=== PATIENT | male | born 1945 | race Caucasian/White ===

== ENCOUNTER 2017-07-16 10:21 | Observation (INO) | payer MEDICARE, OTHER ==
[~2017-07-16] VITALS: Ht 170.2 cm; Wt 81.6 kg
[~2017-07-16 10:21] MED LIST: ASPIRIN EC81 MG PO; CELEBREX200 MG PO; COENZYME Q10100 M1 PO; JANUVIA50 MG PO; LORTAB 7.5-5001 EACH PO; LYRICA50 MG PO; METFORMIN HCL1000 MG PO; MILK OF MAGNESIA; MIRALAX17 GM PO; MORPHINE SULFAT15 M1 PO; NEXIUM40 MG PO; PROTANDIM; REGLAN5 MG PO; VICTOZA 3-0.6 MG/0.1 SC; VOLTAREN100 GM TOP; XARELTO10 MG PO; ZETIA10 MG PO
[2017-07-16 10:55] LABS: BASOPHILS # (AUTO) 0.1 (0.0-0.1); BASOPHILS % 0.9 % (0.0-1.0); EOSINOPHILS # (AUTO) 0.3 (0.0-0.4); EOSINOPHILS % 3.8 % (0.0-6.0); HEMATOCRIT 40.1 % (38.2-49.6); HEMOGLOBIN 13.1 g/dL (14.0-18.0); LYMPHOCYTES # (AUTO) 1.4 (1.0-3.2); LYMPHOCYTES % 17.8 % (18.0-39.1); MEAN CORPUSCULAR HEMOGLOBIN 28.1 pg (28-32); MEAN CORPUSCULAR HGB CONC 32.7 g/dL (31-35); MEAN CORPUSCULAR VOLUME 86.1 fL (81-99); MONOCYTES # (AUTO) 0.5 (0.2-0.8); MONOCYTES % 5.9 % (4.4-11.3); NEUTROPHILS # (AUTO) 5.8 (2.1-6.9); NEUTROPHILS % 71.2 % (38.7-80.0); PLATELET COUNT 367 x10e3/uL (140-360); RED BLOOD COUNT 4.66 x10e6/uL (4.3-5.7); RED CELL DISTRIBUTION WIDTH 13.8 % (11.7-14.4)
[2017-07-16] MEDS ORDERED: CHROMIUM PICO200 MCG PO (11:02)
[2017-07-16] MEDS ORDERED: PLAVIX75 MG PO (11:02)
[2017-07-16] MEDS ORDERED: ZETIA10 MG PO (11:02)
[2017-07-16 11:07] LABS: INR 0.81; PROTHROMBIN TIME 11.6 seconds (11.9-14.5)
[2017-07-16 11:08] LABS: PARTIAL THROMBOPLASTIN TIME 26.2 seconds (23.8-35.5)
--- NOTE | 2017-07-16 11:10 | Diagnostic Imaging Report ---
PROCEDURE: CHEST SINGLE (PORTABLE) COMPARISON: 03/01/2017. INDICATIONS: CHEST PAIN FINDINGS: Lung volumes are low. No focal airspace consolidation, pleural effusion, or pneumothorax. Cardiomediastinal contour and pulmonary vasculature are within normal limits for portable, AP technique and degree of inspiratory effort. No acute osseous abnormality. Thoracolumbar spinal fusion hardware is partially visualized. CONCLUSION: Low lung volumes without acute cardiopulmonary abnormality. Dictated by: Lucio Prince M.D. on 07/16/2017 at 11:18 Electronically approved by: Lucio Prince M.D. on 07/16/2017 at 11:18
[2017-07-16 11:14] LABS: ALANINE AMINOTRANSFERASE 19 IU/L (0-55); ALBUMIN 3.7 g/dL (3.5-5.0); ALBUMIN/GLOBULIN RATIO 1.2 (0.8-2.0); ALKALINE PHOSPHATASE 63 IU/L (40-150); BLOOD UREA NITROGEN 24 mg/dL (7-26); BUN/CREATININE RATIO 22 (6-25); CALCIUM 9.1 mg/dL (8.4-10.2); CARBON DIOXIDE 27 mmol/L (22-29); CHLORIDE 105 mmol/L (98-107); CREATINE KINASE 39 IU/L (30-200); EST GLOMERULAR FILTRATION RATE > 60 ML/MIN (60-); GLUCOSE 221 mg/dL (74-118); SODIUM 139 mmol/L (136-145)
[2017-07-16 11:20] LABS: TROPONIN I 0.008 ng/mL (0-0.300)
[2017-07-16] MEDS ORDERED: DEXTROSE 50% SYRINGE 50 ML IV PRN (11:45)
[2017-07-16] MEDS ORDERED: NITROGLYCERIN 0.4 MG SUBL SL PRN (11:45)
[2017-07-16] MEDS ORDERED: ONDANSETRON HCL INJ 2 MG/ML VIAL IV PRN ×2 (11:45→16:00)
[2017-07-16] MEDS ORDERED: MORPHINE SULFATE 2 MG/ML SYR IV PRN (11:45)
[2017-07-16 12:22] LABS: BILIRUBIN,URINE NEGATIVE (NEGATIVE); KETONES,URINE NEGATIVE (NEGATIVE); LEUKOCYTE ESTERASE ,URINE NEGATIVE (NEGATIVE); NITRITE,URINE NEGATIVE (NEGATIVE); PROTEIN,URINE DIPSTICK NEGATIVE (NEGATIVE); URINE UROBILINOGEN 0.2 mg/dL (0.2 - 1)
[2017-07-16 12:30] LABS: COLOR,URINE YELLOW (YELLOW)
[2017-07-16] MEDS: FAMOTIDINE 20 MG TAB PO SCH ×2 (12:48→23:45)
[2017-07-16 12:55] LABS: CLARITY,URINE SL CLOUDY (CLEAR)
--- NOTE | 2017-07-16 12:57 | History and Physical ---
CHIEF COMPLAINT: Chest pain. Mr. Owusu is a 71-year-old gentleman with a history of recent stroke and vascular disease who had a room attendant placed which showed very brief atrial fibrillation, multiple PVCs. He has been having increasing shortness of breath and chest pain on minimal exertion. His pain is relieved with rest. He was started on clopidogrel, which has helped his exertional symptoms. PAST MEDICAL HISTORY: As listed above. SOCIAL HISTORY: Patient does not smoke or drink. MEDICATIONS: Reviewed. ALLERGIES: NO KNOWN DRUG ALLERGIES. REVIEW OF SYSTEMS: Negative except as dictated in the history of present illness. PHYSICAL EXAMINATION VITAL SIGNS: Afebrile, heart rate 98, blood pressure 149/68, O2 sat 98%. CARDIOVASCULAR: Regular rhythm. S4 gallop. No murmurs. RESPIRATORY: Clear to auscultation bilaterally. ABDOMEN: Soft. Bowel sounds adequate. EXTREMITIES: Pedal pulses are 2+. NEUROLOGIC: Exam is nonfocal. LABS: Reviewed. Renal function is normal. Hemoglobin is 13.1. Cardiac troponin is negative, blood sugars to 21. Chest x-ray was performed which shows low lung volumes without any acute cardiopulmonary abnormality. ASSESSMENT ASSESSMENT: Acute unstable angina. RECOMMENDATIONS: Mr. Owusu has multiple risk factors, including recent stroke, for coronary artery disease. He is having progressive typical exertional symptoms of angina. This warrants coronary angiography. Recent echocardiogram was performed in the office and was within normal limits. The risks, benefits and alternatives to this procedure were discussed with the patient. He is agreeable for the same. Job#: [id number] ALLISON
[2017-07-16] MEDS ORDERED: HEPARIN SOD (PORCINE) 1000 UNIT/ML 30ML ONE (13:19)
[2017-07-16] MEDS ORDERED: MIDAZOLAM HCL 2 MG/2 ML VIAL ONE ×2 (13:20→14:48)
[2017-07-16] MEDS ORDERED: FENTANYL CITRATE/PF 100MCG/2 ML INJ ONE (13:20)
[2017-07-16] MEDS ORDERED: VERAPAMIL HCL 2.5 MG/ML 2 ML VIAL ONE (13:20)
[2017-07-16] MEDS ORDERED: LIDOCAINE HCL 2% LOCAL 20 ML VIAL ONE (13:21)
[2017-07-16] MEDS ORDERED: IOPAMIDOL 370 MG/ML 200 ML INFUS..BTL INJ ONE ×3 (13:21→15:09)
[2017-07-16] MEDS ORDERED: HEPARIN SOD/SOD CHLORIDE 2,000 ML ONE (13:30)
[2017-07-16] MEDS ORDERED: SODIUM CHLORIDE 0.9% 1000ML 1,000 ML ONE (14:08)
[2017-07-16] MEDS ORDERED: BIVALIRUDIN 250 MG/VIAL IV ONE (14:29)
[2017-07-16] MEDS ORDERED: SODIUM CHLORIDE 0.9% 50ML 50 ML ONE (14:30)
[2017-07-16] MEDS ORDERED: PRASUGREL 10 MG TAB ONE (14:41)
[2017-07-16] MEDS ORDERED: ASPIRIN 81 MG CHEW TAB ONE (15:01)
--- NOTE | 2017-07-16 15:43 | Consultation ---
DATE OF CONSULTATION: July 16, 2017 INTERNAL MEDICINE CONSULTATION REASON FOR CONSULTATION: Medical management. HISTORY OF PRESENT ILLNESS: This is a 71-year-old white man who presents to [facility] emergency room with 1-week history of intermittent chest tightness that usually occurs with exertion. The patient denies any associated shortness of breath but does complain of fatigue with the chest pain. 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 Patient is on clopidogrel. A 12-lead EKG done in the emergency room did not reveal any acute ischemic changes. Patient is currently [id number]. The patient's initial cardiac enzymes are normal. The patient's BUN and creatinine on this admission are 24 and 1.1 respectively. Patient's fasting serum glucose is elevated at 221. Of note, urinalysis did reveal slightly cloudy urine with 3+ glucose, otherwise unremarkable. A chest x-ray was also unremarkable. Patient will be admitted for cardiac evaluation. REVIEW OF SYSTEMS GENERAL: Patient has lost approximately 40 pounds over the last 6 months, but he is on GLP1 agonist therapy, namely liraglutide. No fever or chills. HEENT: No headaches. No visual changes. CARDIOVASCULAR/RESPIRATORY: Chest pain as per HPI. He has had some episodes of palpitations, too, in the last couple of weeks. Denies any shortness of breath. Does complain of fatigue, though. GI: No nausea, vomiting, diarrhea or constipation, but he does have some GERD. : No UTI or BPH symptoms. NEUROMUSCULAR: He does complain of chronic lower back pain. PAST MEDICAL HISTORY 1. Post lumbar laminectomy syndrome. 2. 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 3. Dyslipidemia. 4. Severe statin intolerance. 5. Type 2 diabetes mellitus. 6. GERD. ALLERGIES: NO KNOWN DRUG ALLERGIES. MEDICATIONS 1. Victoza 0.6 mg subcutaneous daily. 2. Clopidogrel 75 mg daily. 3. Zetia 10 mg daily. 4. Metformin 850 mg t.i.d. 5. Nexium 40 mg daily. 6. Morphine sulfate extended release 15 mg b.i.d. FAMILY HISTORY: Mother of lymphoma. Patient has no family history of coronary artery disease, though. SURGICAL HISTORY 1. Lumbar laminectomy and fusion in 1999. 2. Laparoscopic cholecystectomy in 1991. 3. Right total knee replacement in 2012. 4. Appendectomy at age 22. SOCIAL HISTORY: This man is retired. He is , lives with his . No history of tobacco or alcohol use. 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 PHYSICAL EXAMINATION GENERAL: He is awake, alert, fully oriented, in no respiratory distress, very pleasant and cooperative with exam. VITAL SIGNS: Height is 5 feet 7 inches. Weight is 180 pounds. Calculated body mass index is 28. Blood pressure is 149/68, pulse is 98, respiratory rate is 18, oxygen saturation is 98% on room air, and temperature is 99.2. INTEGUMENT: Skin is warm and dry. No pallor, jaundice, diaphoresis. HEENT: Anicteric sclerae with moist mucous membranes. NECK: Supple. CARDIOVASCULAR: Tachycardic rate with regular rhythm. LUNGS: No rales, no rhonchi, no wheezes. ABDOMEN: Soft. Normal bowel sounds. Nontender. EXTREMITIES: No edema or deformity. NEUROLOGICALLY: Intact. DIAGNOSES 1. Unstable angina. 2. Type 2 diabetes mellitus. 3. Hyperlipidemia. 4. Severe statin intolerance. 5. 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 PLAN 1. Will hold today's clopidogrel dose. 2. Consult Cardiology. 3. Rule out myocardial infarction. 4. Patient may benefit from a left heart catheterization. 5. Will continue Zetia 10 mg daily for patient's hyperlipidemia. 6. Will continue Victoza 0.6 mg subcutaneous daily for glucose control. 7. Will hold metformin since the patient likely will undergo a left heart catheterization. 8. Blood pressure monitoring and control. I spent 45 minutes in the care of the patient. Job#: [id number] EV
[2017-07-16] MEDS: SODIUM CHLORIDE 0.9% 1000ML 1,000 ML IV SCH (15:47)
[2017-07-16] MEDS ORDERED: MORPHINE SULFATE 15MG TAB CR PO PRN (16:00)
[2017-07-16] MEDS ORDERED: ACETAMINOPHEN 325 MG TAB PO PRN (16:00)
[2017-07-16] MEDS ORDERED: HYDROCODONE/APAP 5MG-325MG TAB PO PRN (16:00)
[2017-07-16] MEDS ORDERED: MORPHINE SULFATE 4 MG/ML SYR IV PRN (16:00)
[2017-07-16] MEDS ORDERED: MORPHINE SULFATE ORAL SOLN 10 MG/5 ML UDC PO PRN (16:15)
[2017-07-16] MEDS: INSULIN REGULAR, HUMAN 100 UNIT/1 ML 3ML VIAL SQ SCH ×2 (16:30→20:11)
[2017-07-16 16:56] LABS: BASOPHILS # (AUTO) 0.1 (0.0-0.1); BASOPHILS % 0.8 % (0.0-1.0); EOSINOPHILS # (AUTO) 0.3 (0.0-0.4); EOSINOPHILS % 2.9 % (0.0-6.0); HEMATOCRIT 34.7 % (38.2-49.6); HEMOGLOBIN 11.4 g/dL (14.0-18.0); LYMPHOCYTES # (AUTO) 1.9 (1.0-3.2); LYMPHOCYTES % 21.5 % (18.0-39.1); MEAN CORPUSCULAR HEMOGLOBIN 28.4 pg (28-32); MEAN CORPUSCULAR HGB CONC 32.9 g/dL (31-35); MEAN CORPUSCULAR VOLUME 86.3 fL (81-99); MONOCYTES # (AUTO) 0.9 (0.2-0.8); MONOCYTES % 9.8 % (4.4-11.3); NEUTROPHILS # (AUTO) 5.7 (2.1-6.9); NEUTROPHILS % 64.8 % (38.7-80.0); PLATELET COUNT 302 x10e3/uL (140-360); RED BLOOD COUNT 4.02 x10e6/uL (4.3-5.7); RED CELL DISTRIBUTION WIDTH 13.8 % (11.7-14.4)
[2017-07-16] MEDS ORDERED: NON-FORMULARY MEDICATION (Metformin Hcl 1,000 MG) PO SCH (17:00)
[2017-07-16] MEDS ORDERED: NON-FORMULARY MEDICATION (Metoclopramide Hcl (Reglan) 5 MG) PO SCH (17:00)
[2017-07-16 17:20] LABS: CREATINE KINASE MB 0.8 ng/mL (0.00-5.00); TROPONIN I 0.063 ng/mL (0-0.300)
[2017-07-16 20:16] VITALS: BP 175/89
[2017-07-16] MEDS ORDERED: ZOLPIDEM TARTRATE 5 MG TAB PO PRN (21:00)
[2017-07-17] MEDS: SODIUM CHLORIDE 0.9% 1000ML 1,000 ML IV SCH (00:03)
[2017-07-17 01:53] LABS: CREATINE KINASE MB 7.5 ng/mL (0.00-5.00)
[2017-07-17 01:58] LABS: TROPONIN I 1.717 ng/mL (0-0.300)
[2017-07-17 05:23] VITALS: BP 105/59
[2017-07-17 06:26] VITALS: BP 105/59
[2017-07-17 06:48] LABS: BASOPHILS # (AUTO) 0.1 (0.0-0.1); BASOPHILS % 0.8 % (0.0-1.0); EOSINOPHILS # (AUTO) 0.4 (0.0-0.4); EOSINOPHILS % 4.9 % (0.0-6.0); HEMATOCRIT 36.3 % (38.2-49.6); HEMOGLOBIN 11.9 g/dL (14.0-18.0); LYMPHOCYTES # (AUTO) 1.5 (1.0-3.2); LYMPHOCYTES % 16.2 % (18.0-39.1); MEAN CORPUSCULAR HEMOGLOBIN 28.3 pg (28-32); MEAN CORPUSCULAR HGB CONC 32.8 g/dL (31-35); MEAN CORPUSCULAR VOLUME 86.2 fL (81-99); MONOCYTES # (AUTO) 0.7 (0.2-0.8); MONOCYTES % 8.1 % (4.4-11.3); NEUTROPHILS # (AUTO) 6.3 (2.1-6.9); NEUTROPHILS % 69.6 % (38.7-80.0); PLATELET COUNT 307 x10e3/uL (140-360); RED BLOOD COUNT 4.21 x10e6/uL (4.3-5.7); RED CELL DISTRIBUTION WIDTH 13.8 % (11.7-14.4)
[2017-07-17 07:00] VITALS: BP 119/55
[2017-07-17 07:06] LABS: ALANINE AMINOTRANSFERASE 32 IU/L (0-55); ALBUMIN 3.2 g/dL (3.5-5.0); ALBUMIN/GLOBULIN RATIO 1.1 (0.8-2.0); ALKALINE PHOSPHATASE 64 IU/L (40-150); ANION GAP 10.1 mmol/L (8-16); BLOOD UREA NITROGEN 18 mg/dL (7-26); BUN/CREATININE RATIO 19 (6-25); CALCIUM 8.6 mg/dL (8.4-10.2); CARBON DIOXIDE 26 mmol/L (22-29); CHLORIDE 107 mmol/L (98-107); CHOL/HDL RATIO 5.9 (3.9-4.7); CHOLESTEROL 195 MD/DL (0-199); CREATININE, SERUM 0.97 mg/dL (0.72-1.25); EST GLOMERULAR FILTRATION RATE > 60 ML/MIN (60-); GLUCOSE 133 mg/dL (74-118); HDL CHOLESTEROL 33 MG/DL (40-60); LDL CHOLESTEROL 135 MG/DL (60-130); POTASSIUM 4.1 mmol/L (3.5-5.1); SODIUM 139 mmol/L (136-145); TRIGLYCERIDES 133 MG/DL (0-149)
[2017-07-17 07:18] LABS: TROPONIN I 1.916 ng/mL (0-0.300)
[2017-07-17] MEDS: INSULIN REGULAR, HUMAN 100 UNIT/1 ML 3ML VIAL SQ SCH (07:30)
[2017-07-17] MEDS ORDERED: BYSTOLIC10 MG PO (08:22)
[2017-07-17] MEDS ORDERED: COZAAR25 MG PO (08:22)
[2017-07-17] MEDS ORDERED: ASPIRIN EC81 MG PO (08:22)
[2017-07-17] MEDS ORDERED: LOSARTAN POTASSIUM 25 MG TAB PO SCH (09:00)
[2017-07-17] MEDS ORDERED: NEBIVOLOL 10 MG TAB PO SCH (09:00)
[2017-07-17] MEDS ORDERED: EZETIMIBE 10 MG TAB PO SCH (09:00)
[2017-07-17] MEDS ORDERED: ASPIRIN 81 MG ENTERIC COATED PO SCH (09:00)
[2017-07-17] MEDS ORDERED: PANTOPRAZOLE SOD 40 MG TABEC PO SCH (09:00)
[2017-07-17] MEDS ORDERED: CLOPIDOGREL BISULFATE 75 MG TAB PO SCH ×2 (09:00)
[2017-07-17] MEDS ORDERED: LIRAGLUTIDE 1.2 MG SC SCH (09:00)
[2017-07-17] MEDS ORDERED: FAMOTIDINE 20 MG TAB PO SCH (09:00)
--- NOTE | 2017-07-17 09:02 | Discharge Summary ---
ADMISSION DIAGNOSIS: Unstable angina. DISCHARGE DIAGNOSES 1. Tfl-UA-mkyfqml elevation myocardial infarction. COMORBID CONDITIONS: 1. Recent cerebrovascular accident. 2. Dyslipidemia. 3. Diabetes mellitus, type 2. 4. Gastroesophageal reflux disease. PROCEDURE: Cardiac catheterization with percutaneous coronary intervention of the left anterior descending and right coronary artery. HISTORY OF PRESENT ILLNESS: This is a 71-year-old man who presented with 1 week of progressive unstable angina. He was taken to the cardiac catheterization lab, which revealed sequential 90% LAD stenosis, as well as 90% RCA stenosis for which he underwent PCI of the proximal and mid-LAD, as well as RCA. He tolerated the procedure well, and was monitored in the hospital overnight without complications. He was counseled on the importance of dual antiplatelet therapy, and started on beta blockade and ARB. He is statin intolerant, and thus is not discharged on statin therapy. We will attempt to arrange Repatha for the patient as an outpatient for his dyslipidemia given his new diagnosis of coronary artery disease. PHYSICAL EXAMINATION VITALS: Temperature 97.8 degrees, pulse 73, respiratory rate 20, blood pressure 119/55, and oxygen saturation 100% on room air. GENERAL: A well-developed, well-nourished man in no acute distress. LUNGS: Clear to auscultation bilaterally. No wheezes or crackles. CARDIOVASCULAR: Normal rate and regular rhythm. No murmur. Normal S1 and S2. ABDOMEN: Soft and nontender. EXTREMITIES: No edema. Right wrist with dressing intact. MEDICATIONS: Please see medication reconciliation. CORI LUNDBERG MD Job#: [id number] RI JOE
[2017-07-17] MEDS ORDERED: MORPHINE SULFAT30 M2 PO (09:33)
[2017-07-17] MEDS ORDERED: REGLAN10 MG PO (09:33)
--- NOTE | 2017-09-11 17:13 | Operative Report ---
DATE OF PROCEDURE: July 16, 2017 INDICATIONS: Coronary artery disease. Unstable angina. PROCEDURES PERFORMED: 1. Left heart catheterization, selective coronary angiography. 2. Percutaneous transluminal coronary angioplasty and drug-eluting stent placement to the mid and proximal left anterior descending artery. 3. Percutaneous transluminal coronary angioplasty and drug-eluting stent placement to the mid right coronary artery. 4. Deployment of right wrist transradial band. COMPLICATIONS: None. RECOMMENDATIONS: Dual antiplatelet therapy for life. Access was obtained in the right radial artery using ultrasound guidance. A 5-Maltese sheath was placed. Diagnostic coronary angiogram revealed patent left main, left anterior descending artery proximal 90% and mid 90%, circumflex mild disease, right coronary artery mid 90% and distal 50%. Right posterior lateral and posterior descending arteries had 50% ostial stenosis. LV ejection fraction 65%. LV end-diastolic pressure of 14. No gradient across the aortic valve on pullback. A decision was made to intervene on the left anterior and right coronary arteries. The patient received intravenous Angiomax and oral Effient for anticoagulation. The left main was cannulated using an XB guide. A short wire was advanced across the lesion. Two stents 2.5 x 20 and 3.0 x 20 were deployed in the mid and proximal left anterior descending arteries respectively, postdilated with a 3.5 mm balloon at 18 atmospheres. The guide was exchanged to a JR4 guide. A short wire was advanced across the right coronary artery, and a 2.5 x 12 mm [employer] Synergy stent was deployed in the right coronary artery with excellent end result, less than 10% residual stenosis in all vessels. PALOMO-3 flow. No complications. A right wrist TR band applied. Patient discharged home after overnight observation. Job#: [id number] EV
== END 2017-07-17 10:16 | disposition home or self-care (01) ==
LOC: ER 10:24 → ERHOLD 11:48 → IMCU 13:43
PROVIDERS: ADMIT Internal Medicine Interventional Cardiology; ATTEND Internal Medicine Interventional Cardiology
DX: I21.4 Non-ST elevation (NSTEMI) myocardial infarction (principal); I25.110 Atherosclerotic heart disease of native coronary artery with unstable angina pectoris; I10 Essential (primary) hypertension; E78.5 Hyperlipidemia, unspecified; E11.65 Type 2 diabetes mellitus with hyperglycemia; T50.995A Adverse effect of other drugs, medicaments and biological substances, initial encounter; K21.9 Gastro-esophageal reflux disease without esophagitis; Z79.02 Long term (current) use of antithrombotics/antiplatelets; M96.1 Postlaminectomy syndrome, not elsewhere classified; Z95.5 Presence of coronary angioplasty implant and graft; Z86.73 Personal history of transient ischemic attack (TIA), and cerebral infarction without residual deficits
CPT/HCPCS: 93458; C9600; 36140; 36415; 71010; 77002; 80053; 80061; 81001; 82550; 82553; 82948; 84484; 85025; 85610; 85730; 87086; 93005; 93452; 99284; C9603; C9608; G0378; J0583; J1644; J2001; J2250; J7030; Q9967

== ENCOUNTER → 2017-12-16 | Outpatient (RCR) | payer MEDICARE ==
[~2017-12-16] MED LIST changes: +BYSTOLIC10 MG PO; +CHROMIUM PICO200 MCG PO; +COZAAR25 MG PO; +MORPHINE SULFAT30 M2 PO; +PLAVIX75 MG PO; +REGLAN10 MG PO
== END ==
LOC: PT 12-06 10:46
PROVIDERS: ATTEND Internal Medicine
DX: R29.6 Repeated falls (principal); R26.2 Difficulty in walking, not elsewhere classified; M62.81 Muscle weakness (generalized)
CPT/HCPCS: 97110 ×3; 97162; G8981; G8982

== ENCOUNTER → 2019-05-27 | Outpatient (CLI) | payer MEDICARE ==
[~2019-05-27] MED LIST changes: +METOPROLOL TART25 MG PO; +REPATHA SQ; +VITAMIN B-121000 MCG PO; +VITAMIN D1000 UNI1 PO
--- NOTE | 2019-05-27 14:24 | Diagnostic Imaging Report ---
EXAMINATION: CHEST 2 VIEWS INDICATION: Pre-operative COMPARISON: None FINDINGS: LINES/TUBES:Loop recorder device projects over the mediastinum. LUNGS:The lungs are well-inflated. No focal consolidation or pulmonary edema. PLEURA:No pleural effusion or pneumothorax. MEDIASTINUM:The cardiomediastinal silhouette appears normal in size and shape. Atherosclerotic calcifications of the thoracic aorta. BONES/SOFT TISSUES:No acute osseous injury. ABDOMEN:No free air under the diaphragm. Partially visualized spinal fusion hardware of the lower thoracic and upper lumbar spine. IMPRESSION: No focal pneumonia or pulmonary edema. Signed by: Reji Barfield MD on 05/27/2019 2:21 PM
== END ==
LOC: RAD 13:41
PROVIDERS: ATTEND Internal Medicine
DX: Z01.818 Encounter for other preprocedural examination (principal)
CPT/HCPCS: 71046

== ENCOUNTER 2019-10-03 12:31 | Inpatient (IN) | payer MEDICARE ==
[~2019-10-03] VITALS: Ht 170.2 cm; Wt 80.8 kg
[2019-10-03] MEDS ORDERED: PANTOPRAZOLE 40 MG 10ML VIAL IV SCH ×2 (13:00→21:00)
[2019-10-03 13:55] LABS: BASOPHILS # (AUTO) 0.1 (0.0-0.1); BASOPHILS % 0.7 % (0.0-1.0); EOSINOPHILS # (AUTO) 0.2 (0.0-0.4); EOSINOPHILS % 1.9 % (0.0-6.0); LYMPHOCYTES # (AUTO) 2.2 (1.0-3.2); LYMPHOCYTES % 20.6 % (18.0-39.1); MEAN CORPUSCULAR HEMOGLOBIN 28.6 pg (28-32); MEAN CORPUSCULAR HGB CONC 32.2 g/dL (31-35); MONOCYTES % 9.2 % (4.4-11.3); NEUTROPHILS # (AUTO) 7.1 (2.1-6.9); NEUTROPHILS % 67.1 % (38.7-80.0); PLATELET COUNT 333 x10e3/uL (140-360); RED BLOOD COUNT 2.27 x10e6/uL (4.3-5.7); RED CELL DISTRIBUTION WIDTH 14.6 % (11.7-14.4)
[2019-10-03] MEDS: SODIUM CHLORIDE 0.9% 1000ML 1,000 ML IV SCH ×2 (14:00→14:45)
[2019-10-03] MEDS ORDERED: SODIUM CHLORIDE 0.9% 250ML 250 ML IV ONE (14:00)
--- NOTE | 2019-10-03 14:00 | NUR ---
IF FLUIDS INFUSING PER MD ORDER
--- NOTE | 2019-10-03 14:03 | History and Physical ---
CHIEF COMPLAINT: Abdominal pain and severe weakness. HISTORY OF PRESENT ILLNESS: This is a 73-year-old white man, who presents to [facility] with a 2-day history of worsening mid epigastric and mid back pain. The patient saw his primary care physician yesterday and blood work revealed hemoglobin 8.1 g/dL. The patient had blood work done in May of 2019, and hemoglobin at that time was 13 g/dL. The patient is on clopidogrel and aspirin therapy since he has history of coronary stent placement. The patient stopped clopidogrel and aspirin 1 day prior to this admission. The patient states that yesterday morning he did have melena. The patient denies any chest pain or tightness. He also denies any shortness of breath. In June of 2019, Nexium was discontinued by his primary care physician. He was started on ranitidine in the form of Zantac 300 mg daily. Blood work done yesterday at the patient's primary care physician's office revealed BUN and creatinine of 53 and 1.57, respectively. REVIEW OF SYSTEMS: GENERAL: He has lost weight at least 10 pounds over the last month. No fever or chills. Complains of generalized weakness. HEENT: No headaches. No visual changes. CARDIOVASCULAR/RESPIRATORY: No chest pain. No shortness of breath. No cough. GI: Complains of melena started one day prior to admission. He complains of epigastric pain, radiates to his back. : No hematuria or dysuria. NEUROMUSCULAR: No limb weakness or numbness. He does complain of chronic back pain. ALLERGIES: NO KNOWN DRUG ALLERGIES. MEDICATIONS: 1. Aspirin 81 mg daily. 2. Clopidogrel 75 mg daily. 3. Vitamin D3 2000 units daily. 4. Chromium picolinate 200 mcg daily. 5. Vitamin B12 1000 mcg daily. 6. Zantac 300 mg b.i.d. 7. Victoza 1.2 mg subcutaneous daily. 8. Metformin 1000 mg b.i.d. 9. Metoprolol succinate 25 mg daily. 10. Morphine sulfate extended release 15 mg t.i.d. p.r.n. pain. 11. Repatha 140 mg subcutaneous twice a month. PAST SURGICAL HISTORY: 1. Right total knee replacement in 2012. 2. Umbilical hernia repair in May 2019. 3. Laparoscopic cholecystectomy in 1991. 4. Lumbar spine fusion with hardware placement in 1999. 5. Appendectomy at age 21. 6. Coronary stent placement (3 stents at once June 2017). 7. Right knee arthroscopy 2003. FAMILY HISTORY: His mother had atrial fibrillation, of stroke. SOCIAL HISTORY: He is , lives with his . He is retired. No history of tobacco or alcohol use. He is very active in the community. 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 PAST MEDICAL HISTORY: 1. Coronary artery disease (three coronary stents placed in June 2017). 2. Hyperlipidemia. 3. Severe statin intolerance. 4. Type 2 diabetes. 5. Post lumbar laminectomy syndrome. PHYSICAL EXAMINATION: GENERAL: He is awake. He is alert. He is fully oriented, but he looks weak. He is very pleasant and cooperative with exam. VITAL SIGNS: Height 5 feet 8 inches. Weight 175 pounds, BMI is 26. Blood pressure 140/70, heart rate is 70, afebrile, and respiratory rate 16. INTEGUMENT: Skin is warm and dry. He has obvious pallor. No jaundice or diaphoresis. HEENT: Anicteric sclerae with moist mucous membranes. The patient has pale conjunctivae. NECK: Supple. CARDIOVASCULAR: Regular rate and rhythm with no murmurs or gallops. LUNGS: No rales. No rhonchi or wheezes. ABDOMEN: Sof, nontender and not distended, but he has midepigastric tenderness. EXTREMITIES: No edema or deformity. NEUROLOGIC: Intact. No gross deficits appreciated. DIAGNOSES: 1. Duodenal ulcer, likely. 2. Acute anemia secondary to upper gastrointestinal bleeding. 3. Coronary artery disease (3 coronary stents placed in June 2017). 4. Type 2 diabetes mellitus. 5. Acute renal insufficiency, likely secondary to acute tubular necrosis. PLAN: 1. Hold clopidogrel and aspirin. 2. Type and cross 2 units of blood. 3. Recheck hemoglobin and hematocrit. 4. We will likely transfuse blood. 5. Consult Gastroenterology. 6. Start intravenous pantoprazole. 7. Follow hemoglobin and hematocrit. 8. We will hold metformin since the patient has lbstj-zo-ieklypf renal insufficiency. 9. Follow renal function. I spent 45 minutes in the care of the patient. MD MATT Newton/ADRI Dia: 10/03/2019 12:51:38 /[id number] JOE
[2019-10-03 14:09] VITALS: BP 144/65
[2019-10-03 14:12] LABS: HEMOGLOBIN 6.5 g/dL (14.0-18.0)
--- NOTE | 2019-10-03 14:12 | Diagnostic Imaging Report ---
Examination: Single AP view of the chest. COMPARISON: 05/27/2019 INDICATION: Coronary artery disease DISCUSSION: The lungs are well inflated. No focal consolidation, pleural effusion, or pneumothorax. Loop recorder device projects over the mediastinum, unchanged. Cardiomediastinal contour and pulmonary vasculature are within normal limits when accounting for portable, AP technique. No acute osseous abnormalities. Lumbar spine fusion hardware partially visualized. IMPRESSION: 1. No acute cardiopulmonary abnormality. Stable appearance of the chest relative to 05/27/2019. Signed by: Dr. Lucio Prince M.D. on 10/03/2019 2:10 PM
[2019-10-03 14:13] LABS: HEMATOCRIT 20.2 % (38.2-49.6)
[2019-10-03 14:18] LABS: ALBUMIN 3.3 g/dL (3.5-5.0); ALBUMIN/GLOBULIN RATIO 1.4 (0.8-2.0); ANION GAP 14.3 mmol/L (8-16); CALCIUM 8.7 mg/dL (8.4-10.2); CREATININE, SERUM 1.29 mg/dL (0.72-1.25); POTASSIUM 4.3 mmol/L (3.5-5.1)
--- NOTE | 2019-10-03 14:22 | NUR ---
WITH STANDBY ASSIST, PT AMBULATED TO BR TO VOID, PT REPORTS SMALL AMOUNT OF LIGHT HEADEDNESS WHEN FIRST GETTING UP , STANDBY ASSIST BACK TO BED, CALL LIGHT WITHIN REACH
--- NOTE | 2019-10-03 14:49 | NUR ---
SPOKE WITH BLOOD BANK, 1 ST UNIT IF PRBC ALMOST READY, WILL BE A DELAY ON SECOND UNIT Addendum: 10/03/19 at 1451 by Sherrie Cordova RN 1ST UNIT OF PRBC
[2019-10-03 15:08] VITALS: BP 144/65
[2019-10-03] MEDS ORDERED: MORPHINE SULFATE 15MG TAB CR PO PRN (16:00)
[2019-10-03] MEDS ORDERED: DEXTROSE 50% SYRINGE 50 ML IV PRN (16:00)
[2019-10-03 16:49] VITALS: BP 162/81
--- NOTE | 2019-10-03 17:30 | NUR ---
TOLERATING DINNER, VOICES NO NEEDS AT THIS TIME
[2019-10-03] MEDS: INSULIN LISPRO 100 UNIT/1 ML 3ML VIAL SQ SCH ×2 (18:47→21:00)
--- NOTE | 2019-10-03 19:00 | NUR ---
REPORT RECEIVED FROM DAY RN.PT IS ALERT AND ORIENTEDX3. PT IN SEMI-FOWLERS POSITION WATCHING TV. AT BEDSIDE. RESPIRATIONS ARE EVEN AND UNLABORED. PIV IN RT WRIST. PT RECEIVING FIRST UNIT OF PRBCS FOR LOW HGB. CALL LIGHT WITHIN REACH. BED IN LOW POSITION.
--- NOTE | 2019-10-03 19:15 | NUR ---
1ST UNIT PRBC COMPLETED, SERA NOTED
[2019-10-03] MEDS ORDERED: PROPOFOL IV EMULSION 10 MG/ML 20 ML VIAL ONE (20:15)
[2019-10-03] MEDS ORDERED: ROCURONIUM BROMIDE 10 MG/ML 5ML VIAL ONE (20:15)
[2019-10-03] MEDS ORDERED: SODIUM CHLORIDE 0.9% 250ML 250 ML ONE (20:27)
[2019-10-03 21:00] VITALS: BP 148/72
--- NOTE | 2019-10-03 21:00 | NUR ---
IV SITE IN RT HAND SLIGHT EDEMA . IV D/C WITH CATHTER INTACT. DRESSING AND PRESSURE TO SITE. NO BLEEDING NOTED.
--- NOTE | 2019-10-03 21:15 | NUR ---
20 G STARTED IN RT FOREARM. IV PATENT WITH GOOD BLOOD RETURN. PT TOLERATED WELL. CONTINUE BLOOD ADMINISTRATION ORDERED.
--- NOTE | 2019-10-03 22:55 | NUR ---
SPOKE WITH MD Roman OHARA CONCERNING PROCEDURE FOR AM. NEW ORDERS RECEIVED FOR EGD IN AM, NPO PAST MIDNIGHT. INFORMED EXCELSIOR MACHINE OPERATOR PROCEDURE TO OCCUR AT 0730 ON 09/24/2019. HOUSE SUP TO CALL OUT COMMUNICATIONS EQUIPMENT INSTALLER TEAM.
[2019-10-04] VITALS (8 sets, daily range): BP systolic 112–149; BP diastolic 54–77
[2019-10-04 06:29] LABS: BASOPHILS # (AUTO) 0.1 (0.0-0.1); BASOPHILS % 0.7 % (0.0-1.0); EOSINOPHILS # (AUTO) 0.4 (0.0-0.4); EOSINOPHILS % 4.3 % (0.0-6.0); HEMATOCRIT 26.6 % (38.2-49.6); HEMOGLOBIN 8.9 g/dL (14.0-18.0); LYMPHOCYTES # (AUTO) 1.8 (1.0-3.2); LYMPHOCYTES % 18.9 % (18.0-39.1); MEAN CORPUSCULAR HEMOGLOBIN 29.4 pg (28-32); MEAN CORPUSCULAR HGB CONC 33.5 g/dL (31-35); MEAN CORPUSCULAR VOLUME 87.8 fL (81-99); MONOCYTES # (AUTO) 0.9 (0.2-0.8); MONOCYTES % 9.3 % (4.4-11.3); NEUTROPHILS # (AUTO) 6.3 (2.1-6.9); NEUTROPHILS % 66.4 % (38.7-80.0); PLATELET COUNT 289 x10e3/uL (140-360); RED BLOOD COUNT 3.03 x10e6/uL (4.3-5.7)
[2019-10-04 06:39] LABS: ANION GAP 12.1 mmol/L (8-16); BLOOD UREA NITROGEN 29 mg/dL (7-26); BUN/CREATININE RATIO 25 (6-25); CALCIUM 8.4 mg/dL (8.4-10.2); CARBON DIOXIDE 24 mmol/L (22-29); CHLORIDE 107 mmol/L (98-107); CREATININE, SERUM 1.15 mg/dL (0.72-1.25); EST GLOMERULAR FILTRATION RATE > 60 ML/MIN (60-); GLUCOSE 157 mg/dL (74-118); POTASSIUM 4.1 mmol/L (3.5-5.1); SODIUM 139 mmol/L (136-145)
[2019-10-04] MEDS ORDERED: MIDAZOLAM HCL 2 MG/2 ML VIAL ONE (07:26)
[2019-10-04] MEDS ORDERED: FENTANYL CITRATE/PF 100MCG/2 ML INJ ONE ×2 (07:27→08:23)
[2019-10-04] MEDS: INSULIN LISPRO 100 UNIT/1 ML 3ML VIAL SQ SCH ×4 (07:30→21:25)
--- NOTE | 2019-10-04 07:30 | NUR ---
PT WHEELED OFF UNIT VIA STRETCHER FOR EGD, NO CHANGE IN CONDITION
--- NOTE | 2019-10-04 08:56 | Operative Report ---
DATE OF PROCEDURE: 10/04/2019 SURGEON: Moses Damico MD PROCEDURE: An EGD with fulguration with size 10-Georgian Gold Probe. INDICATIONS FOR EGD: Anemia, melena. MEDICATIONS: The patient was done under MAC, please see anesthesiologist's note. PROCEDURE IN DETAIL: With the patient in left lateral decubitus position, a flexible fiberoptic Olympus therapeutic scope was introduced into the esophagus with ease without any difficulty. There was some patchy erythema noted in distal esophagus. The scope was then advanced with ease into the stomach. Mucosa overlying the antrum and the body revealed some patchy erythema. Pylorus was of normal contour and shape, was intubated with ease and the scope was advanced all the way to the second portion of the duodenum. The scope was then withdrawn slowly. An approximately 1.5 cm ulcer was noted in the anterior wall of the duodenal bulb extending into the proximal second portion with stigmata of recent hemorrhage. A size 10-Georgian Gold Probe was then introduced and the ulcer base was fulgurated with excellent hemostasis. The scope was subsequently withdrawn and retroflexed. Mucosa overlying the fundus and cardia appeared to be within normal limits. The scope was then straightened out. The scope was subsequently withdrawn. The patient tolerated procedure well. IMPRESSION: 1. Distal esophagitis, mild. 2. Gastritis, mild. 3. Large duodenal ulcer bulb approximately 1.5 cm in size with stigmata of recent hemorrhage, fulgurated with size 10-Georgian Gold Probe with excellent hemostasis. PLAN: Follow H and H. Increase Protonix to 40 mg IV b.i.d. Initiate Carafate 1 g p.o. before meals t.i.d. and at bedtime. Start full liquid diet. Moses Damico MD [facility]/MODL /[id number] cc: Tien Owusu MD
[2019-10-04] MEDS ORDERED: SUCRALFATE 1 GM/10 ML SUSP NG ONE (09:00)
--- NOTE | 2019-10-04 09:22 | Progress Note ---
DATE: 10/04/2019 CHIEF COMPLAINT/HISTORY OF PRESENT ILLNESS: This is a 73-year-old white man, whose primary treating diagnosis is acute anemia secondary to upper gastrointestinal bleeding. The patient underwent EGD today, which revealed a large duodenal ulcer. This ulcer was fulgurated by the pipe line repairer, namely Dr. Moses Damico. The patient tolerated procedure quite well. The patient received 2 units of packed red blood cells yesterday and today's hemoglobin is 8.9 g/dL. White blood cell count 9500 with 66% segmented neutrophils, platelet count 289,000. Today's BUN and creatinine are 29 and 1.15 respectively. Serum glucose this morning 157 mg/dL. REVIEW OF SYSTEMS: As per HPI. PHYSICAL EXAMINATION: GENERAL: He is awake, alert, and fluent. He is currently in the postanesthesia care unit. VITAL SIGNS: Blood pressure is 112/54, pulse is 84, respiratory rate 18, temp 97.0, and oxygen saturation 97% on room air. INTEGUMENT: Skin is warm and dry. His pallor has resolved. No jaundice or diaphoresis appreciated. HEENT: Anicteric sclerae with moist mucous membranes. Conjunctivae look less pale. NECK: Supple. CARDIOVASCULAR: Regular rate and rhythm. No murmurs, rubs, or gallops appreciated. LUNGS: No rales. No rhonchi. No wheezes. ABDOMEN: Soft. No tenderness appreciated. EXTREMITIES: No edema or deformity. NEUROLOGIC: Intact. ASSESSMENT: 1. Status post esophagogastroduodenoscopy. 2. Endoscopically proven large duodenal ulcer. 3. Status post transfusion of 2 units of packed red blood cells on October 03, 2019. 4. Acute anemia from upper gastrointestinal bleeding. 5. Coronary artery disease (three coronary artery stents placed in June 2017). 6. Type 2 diabetes mellitus. 7. Acute renal insufficiency secondary to acute tubular necrosis, resolved. PLAN: 1. We will continue intravenous proton pump inhibitor. 2. Follow up hemoglobin and hematocrit. 3. We will likely transfuse another unit of packed red blood cells since the patient has coronary artery disease and his hemoglobin is still 8.9 g/dL. 4. We will start oral Carafate. 5. We will likely discharge the patient home tomorrow, Saturday, September 04, 2019. I spent 35 minutes in care of this patient. MD MATT Newton/ADRI /[id number] [place]DSouth
--- NOTE | 2019-10-04 09:30 | NUR ---
BACK IN ROOM VIA VIV, AA&OX X3, RA, DENIES PAIN AT THIS TIME, CALL LIGHT WITHIN REACH
[2019-10-04] MEDS ORDERED: SODIUM CHLORIDE 0.9% 250ML 250 ML IV ONE (10:00)
[2019-10-04] MEDS ORDERED: CEPACOL SORE THROAT LOZENGES PO PRN (11:00)
[2019-10-04] MEDS: PANTOPRAZOLE 40 MG 10ML VIAL IV SCH ×2 (11:00→21:14)
[2019-10-04] MEDS ORDERED: CHLORASEPTIC SPRAY 177 ML BTL MM PRN (11:15)
[2019-10-04] MEDS: SUCRALFATE 1 GM TAB PO SCH ×3 (11:30→21:14)
[2019-10-04] MEDS ORDERED: BISACODYL 5 MG TAB EC PO ONE (15:45)
[2019-10-04] MEDS ORDERED: MAGNESIUM HYDROXIDE 30 ML UDC PO ONE (15:45)
--- NOTE | 2019-10-04 16:00 | NUR ---
PT REPORTED THAT HE IS FEELING LIKE HE CANNOT EMPTY COMPLETELY, VOIDING 100-200 AT AT TIME, BLADDER SCAN COMPLETED AT 300-461ML, SPOKE WITH MD LYLES, MADE AWARE OF PT C/O NOT VOIDING COMPLETELY, ORDERS NOTED
--- NOTE | 2019-10-04 16:25 | NUR ---
16FR CONTRERAS PLACED PER MD ORDER , 420ML CLEAR YELLOW URINE DRAINED, PT TOLERATED WELL,
--- NOTE | 2019-10-04 19:09 | NUR ---
WALKING ROUNDS PERFORMED, RECEIVED PT LAYING SEMI FOWLERS IN BED, AAOX3, RR EVEN AND NON-LABORED, ON ROOM AIR. NO S/SX OF DISTRESS NOTED. LEFT PT LAYING SEMI FOWLERS IN BED, BED IN LOW LOCKED POSITION, SIDE RAILS UPX2, CALL LIGHT AND PHONE WITHIN REACH.
[2019-10-04] MEDS ORDERED: SENNOSIDES 8.6 MG TAB PO SCH (21:00)
[2019-10-05] VITALS: BP 112/60
[2019-10-05 04:00] VITALS: BP 128/73
[2019-10-05 06:09] LABS: BASOPHILS # (AUTO) 0.1 (0.0-0.1); BASOPHILS % 0.6 % (0.0-1.0); EOSINOPHILS # (AUTO) 0.4 (0.0-0.4); EOSINOPHILS % 4.5 % (0.0-6.0); HEMATOCRIT 31.8 % (38.2-49.6); HEMOGLOBIN 10.3 g/dL (14.0-18.0); LYMPHOCYTES # (AUTO) 1.8 (1.0-3.2); MEAN CORPUSCULAR HGB CONC 32.4 g/dL (31-35); MEAN CORPUSCULAR VOLUME 89.6 fL (81-99); MONOCYTES # (AUTO) 0.9 (0.2-0.8); MONOCYTES % 9.9 % (4.4-11.3); NEUTROPHILS # (AUTO) 5.5 (2.1-6.9); NEUTROPHILS % 63.5 % (38.7-80.0); PLATELET COUNT 310 x10e3/uL (140-360); RED BLOOD COUNT 3.55 x10e6/uL (4.3-5.7); RED CELL DISTRIBUTION WIDTH 15.2 % (11.7-14.4)
[2019-10-05 06:37] LABS: ALBUMIN/GLOBULIN RATIO 1.1 (0.8-2.0); ANION GAP 12.1 mmol/L (8-16); CALCIUM 9.3 mg/dL (8.4-10.2); CREATININE, SERUM 1.18 mg/dL (0.72-1.25); POTASSIUM 5.1 mmol/L (3.5-5.1)
--- NOTE | 2019-10-05 07:00 | NUR ---
RECEIVED PATIENT AWAKE RESTING IN BED, NO S/S OF DISTRESS. BED LOW, WHEELS LOCKED, SIDE RAILS X2. CALL LIGHT IN REACH WILL CONTINUE TO MONITOR PATIENT.
[2019-10-05] MEDS: INSULIN LISPRO 100 UNIT/1 ML 3ML VIAL SQ SCH (07:30)
[2019-10-05 07:39] VITALS: BP 148/78
[2019-10-05] MEDS: SUCRALFATE 1 GM TAB PO SCH (08:09)
[2019-10-05] MEDS: PANTOPRAZOLE 40 MG 10ML VIAL IV SCH (08:09)
[2019-10-05 08:10] VITALS: BP 148/78
--- NOTE | 2019-10-05 09:35 | NUR ---
REMOVED PATIENTS CONTRERAS CATHETER. CATHETER TIP INTACT ON REMOVAL. PATIENT DUE TO VOID.
[2019-10-05] MEDS ORDERED: CARAFATE PO (10:29)
--- NOTE | 2019-10-05 10:30 | NUR ---
PATIENT HAS VOIDED SINCE CONTRERAS REMOVAL.
--- NOTE | 2019-10-05 10:45 | NUR ---
PATIENT DISCHARGED FROM FACILITY. PATIENT GATHERED ALL PERSONAL BELONGINGS, DISCHARGE INSTRUCTIONS AND FOLLOW UP INFORMATION. PATIENT LEFT UNIT IN WHEELCHAIR AND WENT HOME VIA PRIVATE AUTO. NO S/S OF DISTRESS WHEN LEAVING FACILITY.
--- NOTE | 2019-10-05 10:45 | NUR ---
REMOVED PATIENTS IV. CATHETER TIP INTACT AND PRESSURE DRESSING APPLIED.
--- NOTE | 2019-10-05 10:46 | Discharge Summary ---
ADMIT DIAGNOSES: 1. Acute anemia secondary to upper gastrointestinal bleed. 2. Upper gastrointestinal bleed. 3. Coronary artery disease (three coronary stents placed in June 2017). 4. Type 2 diabetes mellitus. 5. Acute renal insufficiency secondary to acute tubular necrosis. DISCHARGE DIAGNOSES: 1. Upper gastrointestinal bleeding, resolved. 2. Status post esophagogastroduodenoscopy. 3. Endoscopically proven 1.5 cm duodenal ulcer with stigmata of recent hemorrhage. 4. Status post blood transfusion (3 units of packed red blood cells). 5. Coronary artery disease (three coronary stents placed in June 2017). 6. Type 2 diabetes mellitus. 7. Acute renal insufficiency secondary to acute tubular necrosis, resolved. HOSPITAL COURSE: This is a 73-year-old white man who was initially admitted to [facility] with diagnosis of acute anemia secondary to upper gastrointestinal bleeding. The patient's hemoglobin on admission was 6.5 g/dL. The patient was transfused a total of 3 units of packed red cells during this hospitalization. On day of discharge, hemoglobin was 10.3 g/dL. During this hospital stay, the patient was seen by Gastroenterology, namely Dr. Moses Damico who performed upper endoscopy namely EGD that revealed large duodenal ulcer approximately 1.5 cm in size with stigmata of recent hemorrhage. This ulcer was fulgurated with a size 10-Portuguese Gold Probe with excellent hemostasis. The patient prior tolerated the procedure well. The patient received pantoprazole 40 mg intravenously twice a day as well as Carafate 1 g three times a day before meals and at bedtime during this hospitalization. The patient was tolerating a full liquid diet on discharge. His condition on discharge was stable. During this hospitalization, he had a 12-lead EKG, which did not reveal any ischemic changes. Also, the patient was admitted with a diagnosis of acute renal insufficiency, but his renal function improved dramatically with intravenous fluids and with blood transfusion. On admission, the patient's BUN and creatinine was 48 and 1.29 respectively. Actually, the patient's BUN and creatinine at his primary care physician's office one day prior to admission was 53 and 1.57 respectively. On the day of discharge, the patient's BUN and creatinine was 19 and 1.18 respectively. Also during this hospitalization, the patient received subcu sliding scale Humalog insulin because of his elevated glucose levels. Once again, the patient's condition on discharge was stable. DISCHARGE MEDICATIONS: 1. Nexium 40 mg p.o. b.i.d. for 8 weeks and then daily thereafter. 2. Carafate 1 g p.o. t.i.d. before meals for 8 weeks. 3. Metformin 1000 mg b.i.d. 4. Victoza 1.2 mg subcutaneous daily. 5. Vitamin B12 1000 mcg daily. 6. Vitamin D3 2000 units daily. 7. Chromium picolinate 200 mcg daily. 8. Metoprolol succinate 25 mg daily. 9. Morphine sulfate extended release 15 mg t.i.d. p.r.n. pain. 10. Repatha 140 mg subcutaneous twice a month. 11. Vitamin D3 2000 units daily. The patient was told to stop the following medications aspirin and clopidogrel. Also the patient was instructed to avoid all NSAIDs. FOLLOWUP INSTRUCTIONS: The patient instructed to follow up with his primary care physician namely Dr. Tien Owusu within [address] Moses Damico in 2 weeks. Also during this hospitalization, outpatient physical therapy was arranged. MD JOSE NewtonO/LUDINL /[id number] cc: Moses Damico MD MTDD
--- NOTE | 2019-10-05 11:04 | NUR ---
IMM EXPLAINED TO PT, SIGNED BY PT AND PLACED ON CHART COPY OF IMM TO PT IN CARE TRANSITIONS FOLDER ORDERS FOR OP PHYSICAL THERAPY REC'D SPOKE WITH DANIE AT [facility] WHO STATES SHE ALREADY REC'D ORDERS FROM [facility] AND IS PROCESSING INSURANCE NOW PT AWARE AND AGREEABLE WITH PLAN GAVE PT NAME AND NUMBER FOR [facility] ALONG WITH MY BUSINESS CARD FOR ANY QUESTIONS
== END 2019-10-05 10:45 | disposition home or self-care (01) | DRG 377 ==
LOC: MED/SURG 12:52
PROVIDERS: ADMIT Internal Medicine; ATTEND Internal Medicine
PROC: 30233N1 Transfusion of Nonautologous Red Blood Cells into Peripheral Vein, Percutaneous Approach (ICD-10-PCS; 2019-10-03)
PROC: 0D598ZZ Destruction of Duodenum, Via Natural or Artificial Opening Endoscopic (ICD-10-PCS; principal; 2019-10-04 07:45)
DX: K26.4 Chronic or unspecified duodenal ulcer with hemorrhage (principal); N17.0 Acute kidney failure with tubular necrosis; D62 Acute posthemorrhagic anemia; I25.10 Atherosclerotic heart disease of native coronary artery without angina pectoris; Z95.5 Presence of coronary angioplasty implant and graft; E11.9 Type 2 diabetes mellitus without complications
CPT/HCPCS: 36415; 43255; 71045; 80048; 80053; 82948; 85025; 86850; 86900; 86920; 93005; J2250; J3010; J7030; J7050; P9016

== ENCOUNTER → 2019-10-07 | Outpatient (CLI) | payer MEDICARE ==
[~2019-10-07] MED LIST changes: +CARAFATE PO
[2019-10-07 10:37] LABS: BASOPHILS # (AUTO) 0.1 (0.0-0.1); EOSINOPHILS # (AUTO) 0.5 (0.0-0.4); EOSINOPHILS % 6.6 % (0.0-6.0); HEMATOCRIT 32.4 % (38.2-49.6); HEMOGLOBIN 10.2 g/dL (14.0-18.0); LYMPHOCYTES # (AUTO) 1.7 (1.0-3.2); LYMPHOCYTES % 21.1 % (18.0-39.1); MEAN CORPUSCULAR HEMOGLOBIN 29.3 pg (28-32); MEAN CORPUSCULAR HGB CONC 31.5 g/dL (31-35); MEAN CORPUSCULAR VOLUME 93.1 fL (81-99); MONOCYTES # (AUTO) 0.7 (0.2-0.8); MONOCYTES % 8.3 % (4.4-11.3); NEUTROPHILS # (AUTO) 5.1 (2.1-6.9); NEUTROPHILS % 62.8 % (38.7-80.0); PLATELET COUNT 358 x10e3/uL (140-360); RED BLOOD COUNT 3.48 x10e6/uL (4.3-5.7); RED CELL DISTRIBUTION WIDTH 15.4 % (11.7-14.4)
[2019-10-07 10:54] LABS: ANION GAP 10.4 mmol/L (8-16); CALCIUM 8.8 mg/dL (8.4-10.2); CREATININE, SERUM 1.27 mg/dL (0.72-1.25); POTASSIUM 4.4 mmol/L (3.5-5.1)
== END ==
LOC: LAB 10:20
PROVIDERS: ATTEND Internal Medicine
DX: E11.9 Type 2 diabetes mellitus without complications (principal); D62 Acute posthemorrhagic anemia; K92.2 Gastrointestinal hemorrhage, unspecified
CPT/HCPCS: 36415; 80048; 85025

== ENCOUNTER → 2020-08-17 | Outpatient (CLI) | payer MEDICARE, OTHER ==
[~2020-08-17] MED LIST changes: +COVID-19 VACC, MRNA(MODERNA)/PF 100 MCG/0.5 ML VIAL IM ONE
== END ==
LOC: VACCPMC 16:00
DX: Z23 Encounter for immunization (principal); Z20.828 Contact with and (suspected) exposure to other viral communicable diseases

== ENCOUNTER → 2020-08-26 | Outpatient (CLI) | payer MEDICARE ==
[~2020-08-26] MED LIST changes: -COVID-19 VACC, MRNA(MODERNA)/PF 100 MCG/0.5 ML VIAL IM ONE
== END ==
LOC: CT 08-24 11:56
PROVIDERS: ATTEND Student in an Organized Health Care Education/Training Program
DX: M54.17 Radiculopathy, lumbosacral region (principal)
CPT/HCPCS: 72131

== ENCOUNTER → 2020-09-23 | Outpatient (CLI) | payer OTHER ==
[~2020-09-23] MED LIST changes: +COVID-19 VACC, MRNA(MODERNA)/PF 100 MCG/0.5 ML VIAL IM ONE
== END | DRG 951 ==
LOC: VACCPMC 09:13
DX: Z23 Encounter for immunization (principal); Z20.822 Contact with and (suspected) exposure to COVID-19
CPT/HCPCS: 0012A; 91301

== ENCOUNTER → 2020-10-27 | Outpatient (CLI) | payer MEDICARE ==
[~2020-10-27] MED LIST changes: -COVID-19 VACC, MRNA(MODERNA)/PF 100 MCG/0.5 ML VIAL IM ONE
== END ==
LOC: RAD 13:08
PROVIDERS: ATTEND Internal Medicine
DX: S80.02XA Contusion of left knee, initial encounter (principal)

== ENCOUNTER → 2022-04-11 | Outpatient (CLI) | payer MEDICARE, OTHER | LOC: MRI 12:52 | PROVIDERS: ATTEND Internal Medicine | DX: G45.9 Transient cerebral ischemic attack, unspecified (principal); I69.359 Hemiplegia and hemiparesis following cerebral infarction affecting unspecified side; I25.9 Chronic ischemic heart disease, unspecified | CPT/HCPCS: 70551; 93005 ==

== ENCOUNTER → 2022-06-13 | Outpatient (CLI) | payer MEDICARE | LOC: MRI 12:00 | PROVIDERS: ATTEND Student in an Organized Health Care Education/Training Program | DX: M54.17 Radiculopathy, lumbosacral region (principal) | CPT/HCPCS: 72148 ==

== ENCOUNTER → 2023-02-05 | Outpatient (CLI) | payer MEDICARE ==
[2023-02-05 13:50] LABS: ANION GAP 14.8 mmol/L (8-16); CALCIUM 8.9 mg/dL (8.4-10.2); CREATININE, SERUM 1.53 mg/dL (0.72-1.25); POTASSIUM 4.8 mmol/L (3.5-5.1)
== END ==
LOC: LAB 12:56
PROVIDERS: ATTEND Internal Medicine
DX: N18.30 Chronic kidney disease, stage 3 unspecified (principal); I25.9 Chronic ischemic heart disease, unspecified; R07.9 Chest pain, unspecified
CPT/HCPCS: 36415; 80048; 84484

== ENCOUNTER → 2025-02-01 | Outpatient (REF) | payer MEDICARE | LOC: MRI 13:00 | PROVIDERS: ATTEND Student in an Organized Health Care Education/Training Program | DX: M96.1 Postlaminectomy syndrome, not elsewhere classified (principal); M54.17 Radiculopathy, lumbosacral region | CPT/HCPCS: 72148 ==